=== PATIENT | male | born 1955 | race Caucasian/White ===

== ENCOUNTER 2019-08-24 15:35 | Observation (INO) ==
[~2019-08-24 15:35] MED LIST: ADRENALINE CHL INJ ONE; BENADRYL INJ 50 MG VIAL ONE; NARCAN INJ ONE; SOLU-Medrol 125 MG VIAL ONE; ZOFRAN INJ 4 MG VIAL ONE
--- NOTE | 2019-08-24 15:45 | DR.AMS ---
HPI Time Seen Time Seen by Provider: 08/24/19 15:39 PCP Primary Care Physician: NONE HPI Comment HPI Comment: 64 yo CM w/ PMH of alcohol abuse presents w/ AMS. Bee sting prior to arrival in his beer can. 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 No hx of trauma/ injury. Other than alcohol no other ingestion. No recent f/c. + n/v on arrival. Reviewed Nurses Notes Reviewed: Yes Source History Provided: Family Member Mode of Arrival Mode of Arrival: Wheelchair Timing Came On: Suddenly Symptom Onset: Unknown Quality Quality: Decreased Alertness and Confusion Context Recent: Nausea and Vomiting; denies Fever and Drug Use History Of: denies Seizure Associated Signs and Symptoms Associated Signs and Symptoms: Slurred Speech, Decreased LOC and Unresponsiveness PMH PMH Past Medical History Comment: alcohol abuse Past Surgical History: No Family History History of Family Medical Conditions: No Social History Does patient currently use any type of tobacco product: Yes Have you used tobacco products in the last 12 months: Yes Type of Tobacco Use: Cigarettes Alcohol Use: Occasionally Do you use any recreational Drugs:: No ROS Review of Systems Unable to Obtain Due To: Altered mental status PE General Limitations: Altered Mental Status General Appearance: Other (unresponsive to sternal rub. Moaning. ) Head Head Exam: Normal Inspection and Atraumatic Eyes Eye exam: Normal Appearance and PERRL ENT ENT Exam: Normal Exam and Mucous Membranes Moist Mouth Exam: Normal Inspection and Other Throat Exam: Normal Inspection and Other (no edema) Respiratory Respiratory Exam: negative Accessory Muscle Use and Respiratory Distress Respiratory Exam: Bilateral: Wheezing Cardiovascular Cardiovascular Exam: Tachycardia and Normal Heart Sounds Abdominal Exam Abdominal Exam: Normal Inspection Extremities Extremities Exam: Normal Inspection Psychological Psychiatric Exam: Other (unable to fully eval ) Other Exam Other Exam: Neuro: moaning, unresponsive to verbal or painful stimuli MDM Additional Information Obtained Additional Information Obtained From: Family Differential Diagnosis Metabolic: Dehydration, Delirium tr. and Hypoxemia Structural: Closed Head Injury, CVA and SAH Toxicologic: Drug Overdose, ETOH Intoxification and Medication Toxicity COURSE Treatment Treatment: THis is a 64 yo m w/ pmh of alcohol abuse whom came in with sudden onset AMS after being stung by a bee. Alcohol intake t/o the day today. On arrival patient was obtunded and unresponsive. Required BVM ventilation. As initial resuscitation began, patient became more responsive and vomited several times. Was also noted he had been incontinent of urine and feces. GLU on arrival was 100. Given 1 amp d50. Prior to improvement of mental status was given 0.4 mg of narcan. Noted to be markedly hypotensive w/ BP in the 80's. No pharyngeal edema or rash was noted. Given 0.1 mg of epi/ 150 solumedrol/ 50 mg of Benadryl. 2L NSS ivf bolus given w/ improvement of BP on serial exam. Given 4 mg Zofran w/ resolution of n/v. Head CT neg-. Currently neurologically intact. EKG w/ some inferior ST segment depression otherwise w/o ischemic changes. BAL greater than 100. Labs otherwise unremarkable. UDS pending at this time. Given his episode of hypotension/ ams and recent hx of bee sting, will opt to admit for observation of possible anaphylaxis vs vasovagal. d/w Dr Richards whom agrees to admit. Education/Counseling Education/Counseling: Patient and Family ROR Labs Reviewed Laboratory Results Reviewed?: Yes Result Diagrams: 08/24/19 15:05 08/24/19 15:05 Laboratory: WBC 6.7 X10^3/uL (3.6-10.0) 08/24/19 15:05 RBC 5.37 X10^6/uL (4.7-6.0) 08/24/19 15:05 Hgb 16.9 g/dL (13.5-18.0) 08/24/19 15:05 Hct 49.8 % (42.0-54.0) 08/24/19 15:05 MCV 92.6 fL (80.0-100.0) 08/24/19 15:05 MCH 31.5 pg (27.0-34.0) 08/24/19 15:05 MCHC 34.0 g/dL (33.0-35.0) 08/24/19 15:05 RDW 13.5 % (11.6-16.5) 08/24/19 15:05 Plt Count 302 X10^3/uL (150.0-450.0) 08/24/19 15:05 MPV 8.3 fL (7.4-11.0) 08/24/19 15:05 Neut % (Auto) 34.5 % (42.0-75.0) L 08/24/19 15:05 Lymph % (Auto) 60.3 % (21.0-51.0) H 08/24/19 15:05 Ocean % (Auto) 4.5 % (0.0-13.0) 08/24/19 15:05 Eos % (Auto) 0.5 % (0.9-2.9) L 08/24/19 15:05 Baso % (Auto) 0.2 % (0.2-1.0) 08/24/19 15:05 Neut # (Auto) 2.3 x10^3/uL (2.2-4.8) 08/24/19 15:05 Lymph # (Auto) 4.1 X10^3/uL (1.3-2.9) H 08/24/19 15:05 Ocean # (Auto) 0.3 x10^3/uL (0.3-0.8) 08/24/19 15:05 Eos # (Auto) 0.0 x10^3/uL (0.0-0.2) 08/24/19 15:05 Baso # (Auto) 0.0 X10^3/uL (0.0-0.1) 08/24/19 15:05 Absolute Nucleated RBC 0.1 /100WBC 08/24/19 15:05 Sodium 138 mmol/L (136-145) 08/24/19 15:05 Corrected Sodium 139 mmol/L (136-145) 08/24/19 15:05 Potassium 3.5 mmol/L (3.5-5.1) 08/24/19 15:05 Chloride 100 mmol/L (98-107) 08/24/19 15:05 Carbon Dioxide 21.0 mmol/L (21-32) 08/24/19 15:05 BUN 17 mg/dL (7-18) 08/24/19 15:05 Creatinine 0.86 mg/dL (0.70-1.30) 08/24/19 15:05 Est GFR (MDRD) Af Amer > 60 (>60) 08/24/19 15:05 Est GFR (MDRD) Non-Af > 60 (>60) 08/24/19 15:05 Glucose 128 mg/dL (65-99) H 08/24/19 15:05 Calcium 9.3 mg/dL (8.5-10.1) 08/24/19 15:05 Troponin I < 0.02 ng/mL (0-1.5) 08/24/19 15:05 Ethyl Alcohol mg/dL 106 mg/dL (0-19.9) H 08/24/19 15:05 XRAY XRAY Interpreted by: Radiologist XRAY Findings: CT head neg-. CXR neg-. EKG Rate: 111 [place]: Normal Rhythm: ST Block: None Hypertrophy: None ST: Inf (depression ) Opioid Opioid Risk Tool Total: 0 Total Score Risk Category: Low Risk Copyright: [facility] predicting aberrant behaviors Diagnosis Discharge Problem: Anaphylactic reaction, Syncope, Alcohol abuse
[2019-08-24 16:05] LABS: BASOPHILS % (AUTO) 0.2 % (0.2-1.0); EOSINOPHILS % (AUTO) 0.5 % (0.9-2.9); HEMATOCRIT 49.8 % (42.0-54.0); HEMOGLOBIN 16.9 g/dL (13.5-18.0); LYMPHOCYTES # (AUTO) 4.1 X10^3/uL (1.3-2.9); LYMPHOCYTES % (AUTO) 60.3 % (21.0-51.0); MEAN CORPUSCULAR HEMOGLOBIN 31.5 pg (27.0-34.0); MEAN CORPUSCULAR VOLUME 92.6 fL (80.0-100.0); MEAN PLATELET VOLUME 8.3 fL (7.4-11.0); MONOCYTES # (AUTO) 0.3 x10^3/uL (0.3-0.8); MONOCYTES % (AUTO) 4.5 % (0.0-13.0); NEUTROPHILS # (AUTO) 2.3 x10^3/uL (2.2-4.8); NEUTROPHILS % (AUTO) 34.5 % (42.0-75.0); PLATELET COUNT 302 X10^3/uL (150.0-450.0); RED BLOOD COUNT 5.37 X10^6/uL (4.7-6.0); RED CELL DISTRIBUTION WIDTH 13.5 % (11.6-16.5); WHITE BLOOD COUNT 6.7 X10^3/uL (3.6-10.0)
--- NOTE | 2019-08-24 16:05 | RAD ---
Examination: AP chest History: AMS Comparison reference: None Findings: The heart is normal in transverse diameter. The lungs are clear. There is no mediastinal or hilar lesion. Impression: AP chest within normal limits. Reported By:
[2019-08-24 16:08] LABS: BLOOD ALCOHOL 106 mg/dL (0-19.9); BLOOD UREA NITROGEN 17 mg/dL (7-18); CALCIUM 9.3 mg/dL (8.5-10.1); CHLORIDE 100 mmol/L (98-107); COR NA(FOR HYPERGLY) 139 mmol/L (136-145); CREATININE 0.86 mg/dL (0.70-1.30); SODIUM 138 mmol/L (136-145); TROPONIN I < 0.02 ng/mL (0-1.5); eGFR NON BLACK RACES > 60 (>60)
--- NOTE | 2019-08-24 16:09 | CT ---
STUDY: CT HEAD WITHOUT CONTRAST HISTORY: Altered mental status. COMPARISON: None. TECHNIQUE: Multiple axial images of the head were obtained from the skull base to the vertex without administration of IV contrast. Automated exposure control (AEC) was utilized to adjust the MA and/or kV. Findings: The sulci, cisterns and ventricles are prominent consistent with diffuse volume loss. There are scattered foci of low attenuation in the periventricular and subcortical white matter of both hemispheres. This is a nonspecific finding which likely represents microangiopathic change in a patient of this age. There is no evidence of acute territorial infarction, hemorrhage, mass, mass effect or midline shift. There are no abnormal extra-axial fluid collections. There is no evidence of acute osseous abnormality or significant soft tissue swelling. IMPRESSION: 1. No evidence of acute intracranial abnormality. 2. Nonspecific white matter change and volume loss as described. 3. If there is strong clinical concern for acute infarction, then an MRI examination of the brain could be performed for further evaluation. However, if there are no deficits on neurologic exam, there are no abnormalities identified on this study which require immediate imaging follow-up on an emergent basis. Follow-up MRI could be considered on an outpatient basis as clinically warranted. Reported By:
[2019-08-24 16:34] LABS: BAND NEUTROPHILS % 4 % (0-10)
[2019-08-24 16:49] LABS: PLATELET MORPHOLOGY COMMENT NORMAL (NORMAL)
[2019-08-24 16:51] VITALS: BMI 21.7
[2019-08-24] MEDS ORDERED: SOLU-Medrol 125 MG VIAL IVP ONE (16:53)
[2019-08-24] MEDS ORDERED: ZOFRAN INJ 4 MG VIAL IVP ONE (16:53)
[2019-08-24] MEDS ORDERED: ADRENALINE CHL INJ IVP ONE (16:53)
[2019-08-24] MEDS ORDERED: BENADRYL INJ 50 MG VIAL IVP ONE (16:53)
[2019-08-24] MEDS ORDERED: NARCAN INJ IVP ONE (16:53)
[2019-08-24] MEDS ORDERED: NS 1000 ML 1,000 ML IV ONE ×2 (16:53→16:59)
[2019-08-24] MEDS: NS 1000 ML 1,000 ML IV SCH (17:14)
[2019-08-24] MEDS: NICOTINE PATCH TD ONE ×2 (17:48→17:49)
[2019-08-24] MEDS: NICOTINE PATCH TD SCH (17:49)
[2019-08-24] MEDS: CHECK PATCH XX SCH (20:39)
[2019-08-24] MEDS: BENADRYL INJ 50 MG VIAL IVP SCH (20:39)
[2019-08-24] MEDS: SOLU-Medrol 40 MG VIAL IVP SCH (21:19)
[2019-08-24 21:54] LABS: CKMB % 2.3 % (<4); CREATINE KINASE MB 3.1 ng/mL (0-4.0); TROPONIN I 0.31 ng/mL (0-1.5)
[2019-08-24 22:19] LABS: BILIRUBIN,URINE NEGATIVE (NEGATIVE); BLOOD/HEMOGLOBIN,URINE 2+ (NEGATIVE); GLUCOSE, URINE NEGATIVE (NEGATIVE); KETONES,URINE 1+ (NEGATIVE); LEUKOCYTE ESTERASE ,URINE NEGATIVE (NEGATIVE); NITRITES,URINE NEGATIVE (NEGATIVE); PROTEIN,URINE 2+ (NEGATIVE); UROBILINOGEN,URINE NORMAL (NORMAL)
[2019-08-24 22:23] LABS: APPEARANCE,URINE CLEAR (CLEAR); COLOR,URINE YELLOW (YELLOW)
[2019-08-24 22:26] LABS: BACTERIA,URINE NEGATIVE /HPF (NEGATIVE); SQUAMOUS EPITHELIAL CELL,UR NEGATIVE /HPF (NEGATIVE)
[2019-08-25] MEDS: NS 1000 ML 1,000 ML IV SCH ×2 (00:12→06:39)
[2019-08-25 03:26] LABS: BASOPHILS % (AUTO) 0.2 % (0.2-1.0); EOSINOPHILS % (AUTO) 0.1 % (0.9-2.9); HEMATOCRIT 42.8 % (42.0-54.0); LYMPHOCYTES # (AUTO) 0.7 X10^3/uL (1.3-2.9); LYMPHOCYTES % (AUTO) 10.8 % (21.0-51.0); MEAN CORPUSCULAR HEMOGLOBIN 31.2 pg (27.0-34.0); MEAN CORPUSCULAR HGB CONC 33.9 g/dL (33.0-35.0); MEAN CORPUSCULAR VOLUME 91.9 fL (80.0-100.0); MONOCYTES # (AUTO) 0.1 x10^3/uL (0.3-0.8); MONOCYTES % (AUTO) 1.6 % (0.0-13.0); NEUTROPHILS # (AUTO) 5.9 x10^3/uL (2.2-4.8); NEUTROPHILS % (AUTO) 87.3 % (42.0-75.0); PLATELET COUNT 234 X10^3/uL (150.0-450.0); RED BLOOD COUNT 4.66 X10^6/uL (4.7-6.0); RED CELL DISTRIBUTION WIDTH 13.2 % (11.6-16.5); WHITE BLOOD COUNT 6.8 X10^3/uL (3.6-10.0)
[2019-08-25 03:28] LABS: HEMOGLOBIN 14.5 g/dL (13.5-18.0)
[2019-08-25] MEDS: BENADRYL INJ 50 MG VIAL IVP SCH ×2 (03:32→09:10)
[2019-08-25 03:44] LABS: CREATINE KINASE MB 2.5 ng/mL (0-4.0); TROPONIN I 0.12 ng/mL (0-1.5)
[2019-08-25] MEDS: SOLU-Medrol 40 MG VIAL IVP SCH (05:20)
[2019-08-25] MEDS: CHECK PATCH XX SCH (09:11)
[2019-08-25] MEDS: NICOTINE PATCH TD SCH (09:30)
[2019-08-25 12:22] VITALS: BP 135/70
== END 2019-08-25 12:15 | disposition home or self-care (01) ==
LOC: ER 15:35 → MED/SURG 15:35
PROVIDERS: ADMIT Obstetrics & Gynecology Obstetrics; ATTEND Obstetrics & Gynecology Obstetrics
DX: R94.31 Abnormal electrocardiogram [ECG] [EKG]; I95.89 Other hypotension; R11.2 Nausea with vomiting, unspecified; T63.441A Toxic effect of venom of bees, accidental (unintentional), initial encounter; F10.129 Alcohol abuse with intoxication, unspecified; R40.4 Transient alteration of awareness; R55 Syncope and collapse; Y90.5 Blood alcohol level of 100-119 mg/100 ml
CPT/HCPCS: 36415; 70450; 71010; 71045; 80048; 80307; 80320; 81001; 82550; 82553; 83605; 84484; 85025; 93005; 96360; 96361; 96365; 96374; 96375; 99284; A4216; G0378; G0434; G6040; J0171; J1200; J2310; J2405; J2920; J2930; J7030